=== PATIENT | male | born 1970 | race Caucasian/White ===

== ENCOUNTER 2022-12-28 10:19 | Outpatient (CLI) | payer BC | END 2022-12-28 10:20 | disposition home or self-care (01) | LOC: CSHULT 10:19 | PROVIDERS: ATTEND Family Medicine | DX: M79.89 Other specified soft tissue disorders (principal) ==

== ENCOUNTER 2025-07-18 05:54 | Day surgery (SDC) | payer BC ==
[2025-07-17 09:36] VITALS: BMI 31.5
[2025-07-18] MEDS ORDERED: PROPOFOL 20 ML ONE (07:23)
[2025-07-18] MEDS ORDERED: Ondansetron PF 4 MG/2 ML Vial ONE (07:23)
[2025-07-18 07:29] LABS: #Basophils 0.03 10x3/uL (0.0-0.2); #Eosinophils 0.21 10x3/uL (0.0-0.5); #Monocytes 0.63 10x3/uL (0.0-1.1); #Neutrophils 5.15 10x3/uL (1.5-8.4); %Basophils 0.4 % (0.0-2.0); %Eosinophils 3.0 % (0.0-6.0); %Lymphocytes 12.7 % (18.0-47.0); %Monocytes 9.1 % (0.0-10.0); %Neutrophils 74.4 % (40.0-75.0); Hematocrit 46.0 % (38.8-50.0); Hemoglobin 14.8 g/dL (13.5-17.5); Mean Corpuscular Hemoglobin 26.9 pg (27.0-33.0); Mean Corpuscular Volume 83.5 fL (81.2-95.1); Platelet Count 181 10x3/uL (150-450); Red Blood Cell (RBC) Count 5.51 10x6/uL (4.32-5.72); White Blood Cell (WBC) Count 6.93 10x3/uL (3.5-10.5)
[2025-07-18 07:42] LABS: Anion Gap 15 mmol/L (10-20); BUN (Urea Nitrogen) 21 mg/dL (8.4-25.7); Calc. Creatinine Clearance 90 mL/min (70-130); Calcium 9.7 mg/dL (7.8-10.44); Carbon Dioxide 26 mmol/L (22-29); Chloride 104 mmol/L (98-107); Glucose 241 mg/dL (70-105); Potassium 4.3 mmol/L (3.5-5.1); Sodium 141 mmol/L (136-145)
[2025-07-18] MEDS ORDERED: CEFAZOLIN 2 GM VIAL ONE (07:51)
== END 2025-07-18 10:45 | disposition home or self-care (01) ==
LOC: CSHSDC 05:54
PROVIDERS: ATTEND Podiatrist Foot & Ankle Surgery
PROC: 0QBR0ZZ Excision of Left Toe Phalanx, Open Approach (ICD-10-PCS; principal; 2025-07-18)
DX: M89.9 Disorder of bone, unspecified (principal); M25.775 Osteophyte, left foot; I10 Essential (primary) hypertension; E78.00 Pure hypercholesterolemia, unspecified; Z79.899 Other long term (current) drug therapy
CPT/HCPCS: 36415; 80048; 85025; 93005; 93010; J0665; J1100; J2250; J2405; J2704; J3010